=== PATIENT | female | born 1985 | race Caucasian/White ===

== ENCOUNTER 2018-10-09 13:28 | Outpatient (CLI) | payer BC ==
[~2018-10-09 13:28] MED LIST: AMOX875T PO; INSU100C5 SQ-INSULIN; INSU100V8 SQ; LEVO125T PO; PREN1TAB60 PO
[2018-10-09 14:50] LABS: BASOPHILS # (AUTO) 0.08 x10^3/uL (0-0.1); BASOPHILS % (AUTO) 1 % (0-1); EOSINOPHILS # (AUTO) 0.22 x10^3/uL (0-0.4); EOSINOPHILS % (AUTO) 3 % (1-7); LYMPHOCYTES # (AUTO) 1.91 x10^3/uL (1-3.4); LYMPHOCYTES % (AUTO) 24 % (22-44); MD NO; MEAN CORPUSCULAR VOLUME 96.8 fL (80-100); MEAN PLATELET VOLUME 9.1 fL (7.4-10.4); MONOCYTES # (AUTO) 0.43 x10^3/uL (0.2-0.8); MONOCYTES % (AUTO) 5 % (2-9); NEUTROPHILS # (AUTO) 5.46 x10^3/uL (1.8-6.8); NEUTROPHILS % (AUTO) 68 % (42-75); PLATELET COUNT 324 x10^3/uL (130-400); RED BLOOD COUNT 4.44 x10^6/uL (3.82-5.3); RED CELL DISTRIBUTION WIDTH 13.8 % (9.6-15.2)
[2018-10-09 14:59] LABS: ALANINE AMINOTRANSFERASE 20 U/L (12-78); ALBUMIN 3.8 g/dL (3.4-5.0); ANION GAP 7 mmol/L (5-15); CALCIUM 8.9 mg/dL (8.5-10.1); CHLORIDE 107 mmol/L (98-107); CREATININE 1.15 mg/dL (0.55-1.02)
[2018-10-09 15:03] LABS: ALKALINE PHOSPHATASE 46 U/L (45-117); BILIRUBIN,TOTAL 0.9 mg/dL (0.2-1.0); TOTAL PROTEIN 7.5 g/dL (6.4-8.2)
[2018-10-09 15:55] LABS: CULTURE INDICATED? NO; MICROSCOPIC NOT IND
== END 2018-10-09 23:59 | disposition home or self-care (01) ==
LOC: STAR 13:28
PROVIDERS: ATTEND Obstetrics & Gynecology Gynecology
DX: Z01.818 Encounter for other preprocedural examination (principal); N92.0 Excessive and frequent menstruation with regular cycle; N94.10 Unspecified dyspareunia; N94.5 Secondary dysmenorrhea
CPT/HCPCS: 36415; 80053; 81003; 84703; 85025; 93005

== ENCOUNTER 2018-10-18 07:11 | Day surgery (SDC) | payer BC, OTHER ==
[~2018-10-18] VITALS: Ht 154.9 cm; Wt 60.0 kg
[~2018-10-18 07:11] MED LIST changes: +INSULIN LISPRO SQ; +KETO10TA PO; +NORE5TAB PO; +ONDA4TAB7 PO; +[UNRECOGNIZED DRUG - OTHER] SQ
[2018-10-18 07:39] VITALS: BP 119/87
[2018-10-18] MEDS ORDERED: LACTATED RINGERS 1,000 ML IV SCH (08:06)
[2018-10-18] MEDS ORDERED: MIDAZOLAM 1 MG/ML, 2ML ONE (08:15)
[2018-10-18] MEDS ORDERED: FENTANYL PF 250 MCG/5ML ONE (08:16)
[2018-10-18] MEDS ORDERED: SUGAMMADEX 200 MG/2 ML IVPush ONE ×2 (08:17→12:06)
[2018-10-18 08:21] LABS: HCG UR SG 1.024 (1.003-1.030)
[2018-10-18] MEDS ORDERED: INDIGO CARMINE 0.8%, 5ML ONE (08:41)
[2018-10-18] MEDS ORDERED: LIDOCAINE/MPF 2%-EPI 1:200K, 20 ML ONE (08:41)
[2018-10-18] MEDS ORDERED: GABAPENTIN 300 MG CAPSULE ONE (08:42)
[2018-10-18] MEDS ORDERED: APREPITANT 40 MG CAPSULE ONE (08:42)
[2018-10-18] MEDS ORDERED: CLINDAMYCIN 150 MG/ML, 6ML ONE (08:53)
[2018-10-18] MEDS ORDERED: PROPOFOL 50 ML ONE (08:56)
[2018-10-18] MEDS ORDERED: KETAMINE 10 MG/ML, 20ML ONE (09:04)
[2018-10-18] MEDS ORDERED: LIDOCAINE 1%-EPI 1:100K, 20ML INFIL ONE (09:31)
[2018-10-18] MEDS ORDERED: MEPERIDINE/PF 100 MG/ML ONE (09:40)
[2018-10-18] MEDS ORDERED: PROPOFOL 10 MG/ML, 20ML ONE (09:56)
[2018-10-18] MEDS ORDERED: ROCURONIUM 10MG/ML,5ML ONE (09:56)
[2018-10-18] MEDS ORDERED: DEXAMETHASONE 4 MG/ML, 1ML ONE (09:56)
[2018-10-18] MEDS ORDERED: KETOROLAC 30 MG/1 ML ONE (09:56)
[2018-10-18] MEDS ORDERED: ONDANSETRON 2MG/ML, 2ML ONE (09:56)
[2018-10-18] MEDS ORDERED: LIDOCAINE-MPF 2% ,5ML ONE (09:56)
[2018-10-18] MEDS ORDERED: HALOPERIDOL 5 MG/ML IV PRN (10:00)
[2018-10-18] MEDS ORDERED: ACETAMINOPHEN 325 MG TABLET PO PRN (10:00)
[2018-10-18] MEDS ORDERED: PROMETHAZINE 25 MG/ML, 1ML IV PRN (10:00)
[2018-10-18] MEDS ORDERED: hydrALAzine 20 MG/ML, 1ML IV PRN (10:00)
[2018-10-18] MEDS ORDERED: MEPERIDINE/PF 25MG/0.5ML IVPush PRN (10:00)
[2018-10-18] MEDS ORDERED: MORPHINE SULFATE 4 MG/ML, 1ML IVPush PRN (10:00)
[2018-10-18] MEDS ORDERED: FENTANYL PF 100 MCG/2ML ONE (11:36)
[2018-10-18] MEDS ORDERED: OXYcodone 5 MG/5 ML ORAL.SOL UDC ONE ×2 (11:36→11:55)
[2018-10-18] MEDS ORDERED: ACETAMINOPHEN 650 MG/20.3 ML UDC ONE (11:36)
[2018-10-18] MEDS: OXYcodone 5 MG/5 ML ORAL.SOL UDC PO PRN ×2 (11:38→12:00)
[2018-10-18] MEDS: FENTANYL PF 100 MCG/2ML IV PRN ×3 (11:40→12:01)
[2018-10-18] MEDS ORDERED: MEPERIDINE/PF 25MG/ML,1ML ONE (11:55)
== END 2018-10-18 15:20 | disposition home or self-care (01) ==
LOC: OUT 07:11
PROVIDERS: ATTEND Obstetrics & Gynecology Gynecology
DX: N72 Inflammatory disease of cervix uteri (principal); N84.0 Polyp of corpus uteri; N73.6 Female pelvic peritoneal adhesions (postinfective); G89.29 Other chronic pain; R10.2 Pelvic and perineal pain; E11.9 Type 2 diabetes mellitus without complications; Z88.8 Allergy status to other drugs, medicaments and biological substances
CPT/HCPCS: 58552; 81025; 82962; 85014; 88307; J1100; J1885; J2175; J2250; J2405; J2704; J3010; J3490; J7120; J8501

== ENCOUNTER 2018-10-19 10:29 | Emergency (ER) | payer OTHER ==
[~2018-10-19] VITALS: Ht 154.9 cm; Wt 60.0 kg
[2018-10-19 12:24] VITALS: BP 117/79
== END 2018-10-19 12:28 | disposition home or self-care (01) ==
LOC: ED 12:15
DX: M25.511 Pain in right shoulder (principal); M54.2 Cervicalgia; E11.9 Type 2 diabetes mellitus without complications; E03.9 Hypothyroidism, unspecified; Z90.710 Acquired absence of both cervix and uterus
CPT/HCPCS: 71046; 99283